=== PATIENT | female | born 1940 | race Caucasian/White ===

== ENCOUNTER → 2021-05-08 | Day surgery (SDC) | payer MEDICARE ==
[2021-05-04 10:35] LABS: BASOPHILS # (AUTO) 0.1 (0.0-0.1); EOSINOPHILS # (AUTO) 0.2 (0.0-0.4); EOSINOPHILS % 2.2 % (0.0-6.0); HEMATOCRIT 43.1 % (34.2-44.1); HEMOGLOBIN 13.7 g/dL (12.0-16.0); LYMPHOCYTES # (AUTO) 1.5 (1.0-3.2); LYMPHOCYTES % 20.9 % (18.0-39.1); MEAN CORPUSCULAR HEMOGLOBIN 27.4 pg (28-32); MEAN CORPUSCULAR HGB CONC 31.8 g/dL (31-35); MEAN CORPUSCULAR VOLUME 86.2 fL (81-99); MONOCYTES # (AUTO) 0.7 (0.2-0.8); MONOCYTES % 9.9 % (4.4-11.3); NEUTROPHILS # (AUTO) 4.8 (2.1-6.9); NEUTROPHILS % 65.6 % (38.7-80.0); PLATELET COUNT 213 x10e3/uL (140-360)
[2021-05-04 10:54] LABS: ALBUMIN 4.1 g/dL (3.5-5.0); ALBUMIN/GLOBULIN RATIO 1.3 (0.8-2.0); ANION GAP 12.1 mmol/L (8-16); CALCIUM 10.7 mg/dL (8.4-10.2); CREATININE, SERUM 1.07 mg/dL (0.57-1.11); POTASSIUM 4.1 mmol/L (3.5-5.1)
[~2021-05-08] VITALS: Ht 157.5 cm; Wt 68.0 kg
[2021-05-08] VITALS (10 sets, daily range): BP systolic 128–160; BP diastolic 53–72
[~2021-05-08] MED LIST: ASPIRIN 325 MG TAB ONE; ATENOLOL50 MG PO; CRESTOR10 MG PO; DIAZEPAM5 MG PO; DIPHENHYDRAMINE HCL 25 MG CAP ONE; EFFIENT10 MG PO; FAMOTIDINE 20 MG/2 ML VIAL IV ONE; FENTANYL CITRATE/PF 100MCG/2 ML INJ ONE; HEPARIN SOD/SOD CHLORIDE 2,000 ML ONE; IOPAMIDOL 370 MG/ML 200 ML INFUS..BTL INJ ONE; KLOR-CON 1010 MEQ PO; LIDOCAINE HCL 2% LOCAL 20 ML VIAL ONE; LISINOPRIL-HCT1 EACH PO; METHYLPREDNISOLONE SOD SUCC 125 MG/2ML VIAL ONE; MIDAZOLAM HCL 2 MG/2 ML VIAL ONE; NIFEDIPINE ER30 M1 PO; PRASUGREL 10 MG TAB ONE; SODIUM CHLORIDE 0.9% 1000ML 1,000 ML ONE
== END | disposition home or self-care (01) ==
LOC: CATH LAB 07:48
PROVIDERS: ATTEND Internal Medicine Cardiovascular Disease
DX: I25.111 Atherosclerotic heart disease of native coronary artery with angina pectoris with documented spasm (principal); R94.39 Abnormal result of other cardiovascular function study; E78.5 Hyperlipidemia, unspecified; I10 Essential (primary) hypertension; G70.00 Myasthenia gravis without (acute) exacerbation; Z88.0 Allergy status to penicillin; Z88.8 Allergy status to other drugs, medicaments and biological substances; Z91.041 Radiographic dye allergy status; Z01.812 Encounter for preprocedural laboratory examination; Z20.822 Contact with and (suspected) exposure to COVID-19; Z79.899 Other long term (current) drug therapy; Z95.5 Presence of coronary angioplasty implant and graft; Z82.49 Family history of ischemic heart disease and other diseases of the circulatory system
CPT/HCPCS: 93458; 93571; 93572; C9600; 36415; 80053; 80061; 85025; 92928; 99152; 99153; C1725; C1760; C1769; C1874; C1887; J2001; J2250; J2930; J3010; J7030; Q9967; U0002